=== PATIENT | male | born 1990 | race Two or more races ===

== ENCOUNTER 2017-10-18 19:44 | Emergency (ER) | payer OTHER, SELFPAY ==
[~2017-10-18] VITALS: Ht 172.7 cm; Wt 81.8 kg
[2017-10-18 19:45] VITALS: BP 124/65
[2017-10-18 20:26] LABS: MICROSCOPIC INDICATED
[2017-10-18 20:35] LABS: CULTURE INDICATED? YES
== END 2017-10-18 21:27 | disposition home or self-care (01) ==
LOC: ED 21:00
DX: N30.90 Cystitis, unspecified without hematuria (principal)
CPT/HCPCS: 81001; 87086; 99284

== ENCOUNTER 2018-02-27 19:11 | Emergency (ER) | payer OTHER ==
[~2018-02-27] VITALS: Ht 172.7 cm; Wt 81.0 kg
[2018-02-27 19:31] VITALS: BP 137/86
[2018-02-27] MEDS ORDERED: DIPH,PERTUSS(ACELL),TET VAC/PF 0.5 ML IM-VACC ONE ×2 (19:59→20:00)
[2018-02-27] MEDS ORDERED: BACITRACIN ZINC OINT 500U/GM, 0.9 GM ONE (20:20)
== END 2018-02-27 20:33 | disposition home or self-care (01) ==
LOC: ED 20:10
DX: S61.411A Laceration without foreign body of right hand, initial encounter (principal); X58.XXXA Exposure to other specified factors, initial encounter; Y93.89 Activity, other specified; Y99.0 Civilian activity done for income or pay; Y92.69 Other specified industrial and construction area as the place of occurrence of the external cause
CPT/HCPCS: 99284